=== PATIENT | male | born 1995 | race Caucasian/White ===

== ENCOUNTER 2017-08-05 12:58 | Emergency (ER) | payer SELFPAY ==
[~2017-08-05] VITALS: Ht 172.7 cm; Wt 75.0 kg
[2017-08-05 13:01] VITALS: BP 124/71
== END 2017-08-05 14:14 | disposition home or self-care (01) ==
LOC: ER 13:14
DX: M79.645 Pain in left finger(s) (principal); F12.10 Cannabis abuse, uncomplicated; X58.XXXA Exposure to other specified factors, initial encounter; Y93.89 Activity, other specified; Y92.89 Other specified places as the place of occurrence of the external cause; Y99.8 Other external cause status
CPT/HCPCS: 99281